=== PATIENT | female | born 1990 | race African-American/Black ===

== ENCOUNTER 2021-04-26 11:13 | Emergency (ER) | payer MEDICAID ==
[~2021-04-26] VITALS: Ht 154.9 cm; Wt 82.0 kg
[2021-04-26 12:21] VITALS: BP 126/84
== END 2021-04-26 12:22 | disposition home or self-care (01) ==
LOC: ER 11:13
DX: U07.1 COVID-19 (principal)
CPT/HCPCS: 99283; C9803; U0003; U0005